=== PATIENT | male | born 1955 | race Caucasian/White ===

== ENCOUNTER 2020-08-18 14:42 | Emergency (ER) | payer OTHER ==
[~2020-08-18] VITALS: Ht 170.2 cm; Wt 95.3 kg
[2020-08-18 14:47] VITALS: Ht 170.2 cm; Wt 95.3 kg
[2020-08-18 16:50] LABS: BASOPHIL % 0.3 % (0.2-1.5); PLATELET COUNT 238 x10^3mcL (152-348); RED CELL DISTRIBUTION WIDTH 13.7 % (12.1-16.2)
[2020-08-18 16:58] LABS: CALCIUM 8.6 mg/dL (8.5-10.1); CARBON DIOXIDE 27.2 mmol/L (21-32); CHLORIDE SERUM 98 mmol/L (98-107); GFR1 > 60 mL/min; GLUCOSE SERUM 87 mg/dL (74-106); SODIUM SERUM 133 mmol/L (136-145)
[2020-08-18 17:03] LABS: ALBUMIN 3.4 g/dL (3.4-5.0); ALKALINE PHOSPHATASE 76 U/L (46-116); ALT/SGPT 22 U/L (16-63); AST/SGOT 23 U/L (15-37); BILIRUBIN TOTAL 0.63 mg/dL (0.20-1.00); TOTAL PROTEIN, SERUM 7.9 g/dL (6.4-8.2)
[2020-08-18 19:25] VITALS: BP 140/69
== END 2020-08-18 19:25 | disposition home or self-care (01) ==
LOC: ED 14:42
PROVIDERS: Student in an Organized Health Care Education/Training Program
DX: U07.1 COVID-19 (principal); J12.89 Other viral pneumonia; J44.9 Chronic obstructive pulmonary disease, unspecified
CPT/HCPCS: 83880